=== PATIENT | female | born 1985 | race Caucasian/White ===

== ENCOUNTER 2017-03-11 09:20 | Emergency (ER) | payer MEDICAID, SELFPAY ==
[2017-03-11 09:36] VITALS: BP 133/81; PULSE 100; RESP 18; TEMP 36.2; O2SAT 97
[2017-03-11 09:39] VITALS: PULSE 90; RESP 18; O2SAT 97; BMI 39.5
[2017-03-11 10:10] LABS: UTC Influenza A Antigen Negative (Negative); UTC Influenza B Antigen Negative (Negative)
--- NOTE | 2017-03-11 10:19 | HMH.EDUTC ---
[facility] [place] Impression: Viral upper respiratory illness Disposition: Home, Self-Care Condition on Discharge: Good Instructions: DI for Viral Upper Respiratory Infection -- Adult Additional Instructions: * No sign of bacterial infection. Likely viral. Virus can take 7-14 days to run their course * Monitor Temp. Tylenol every 4 hours as needed no more then 5 times a day or 4000mg in 24 hours and/or ibuprofen every 6 hours as needed no more then 3200mg in 24 hours (as long as your primary care doctor has told you that it is ok to take both) for fever/aches/pain. ER if fever no less than 101 despite tylenol and ibuprofen * Encourage fluids, water, gatorade, powerade, pedialyte if infant/toddler/child * warm salt water gargles * warm fluids * sore throat lozenges * sleep elevated * humidifier/vaporizer * * Your throat swab was sent for culture. Those results are typically sent to your primary care. Be sure to follow up in 2-3 days if no improvement so they can review those results and treat if necessary. If you don't have primary care, I recommend you get one but in the mean time, you will have to return to a walk in clinic. Follow up with your primary care or return to [facility] IMMEDIATELY for new or worsening symptoms OR no noticeable improvement over the next 48-72 hours. 911 for difficulty breathing or swallowing. Time of Disposition: 10:33 Medical Decision Making Vital Signs: 03/11/17 09:36 03/11/17 09:39 Temperature 97.1 F L Temperature Source Temporal Artery Scan Pulse Rate [Left] 100 H 90 Respiratory Rate 18 18 Blood Pressure [Right Arm] 133/81 Blood Pressure Mean [Right Arm] 98 Blood Pressure Source [Right Arm] Automatic Cuff Blood Pressure Position [Right Arm] Sitting 02 Sat by Pulse Oximetry 97 97 Oxygen Delivery Method Room Air - Lab Data Lab Results 03/11/17 10:06: Influenza Type A Ag Negative, Influenza Type B Ag Negative, Strep Scn Rapid [facility] - [place] Inquiry Pt receiving controlled substance: No [facility] [place] General Stated complaint: Flu Like Symptoms Time Seen by Provider: 03/11/17 10:19 Mode of Arrival: Ambulatory Source of Information: Patient Limitations: No Limitations Description of Symptoms (Recalled from Triage Doc. by RN): SORE THROAT, COUGH 2 DAYS HEENT Symptoms (Recalled from RN notes): Yes Resp Symptoms (Recalled from RN notes): No Skin Symptoms (Recalled from RN notes): No MS Symptoms (Recalled from RN notes): No Functional Status (Recalled from RN notes): N - History of Present Illness Provider Complaint: c/o vague symptoms for awhile now . Finally able to narrow it down to at least a few days . Hasn't taken or tried anything. Initially only c/o sore throat but opens up on ROS. No known sick contacts. - Related Data Home Medications Medication Instructions Recorded Confirmed No Known Home Medications [No 03/11/17 03/11/17 Known Home Medications] Allergies Allergy/AdvReac Type Severity Reaction Status Date / Time Penicillins [PENICILLINS] Allergy Intermediate Unverified 02/23/17 14:57 - Worker's Comp Is this a Worker's Comp case?: No [facility] History - *Social History Alcohol Intake: never - Psychiatric History Expresses thoughts of harming self/others: None Suicide Plan Description: No Plan ROS Obtained: Yes Systems reviewed as appropropriate & no additional complaint - Constitutional Reports body ache(s), Reports chills, Reports fatigue, Reports fever(s) (subjective, at times, not consistent, nothing she is taking medication for), Reports headache(s) (mild intermittent), Denies anorexia - Eyes Denies discharge - ENT Reports ear pain (khris, mild, intermittent), Reports nasal congestion, Reports nasal discharge (clear), Reports post nasal drip, Reports sore throat, Denies abnormal hearing, Denies dizziness, Denies difficulty swallowing, Denies ear discharge, Denies sinus pain, Denies sinus pressure, Denies
--- NOTE | 2017-03-11 10:24 | ED_ITS ---
[facility] [place] Clinical Impression: Viral upper respiratory illness Disposition: Home, Self-Care Condition on Discharge: Good Instructions: DI for Viral Upper Respiratory Infection -- Adult Additional Instructions: * No sign of bacterial infection. Likely viral. Virus can take 7-14 days to run their course * Monitor Temp. Tylenol every 4 hours as needed no more then 5 times a day or 4000mg in 24 hours and/or ibuprofen every 6 hours as needed no more then 3200mg in 24 hours (as long as your primary care doctor has told you that it is ok to take both) for fever/aches/pain. ER if fever no less than 101 despite tylenol and ibuprofen * Encourage fluids, water, gatorade, powerade, pedialyte if infant/toddler/ child * warm salt water gargles * warm fluids * sore throat lozenges * sleep elevated * humidifier/vaporizer * * Your throat swab was sent for culture. Those results are typically sent to your primary care. Be sure to follow up in 2-3 days if no improvement so they can review those results and treat if necessary. If you don't have primary care , I recommend you get one but in the mean time, you will have to return to a walk in clinic. Follow up with your primary care or return to [facility] IMMEDIATELY for new or worsening symptoms OR no noticeable improvement over the next 48-72 hours. 911 for difficulty breathing or swallowing. Time of Disposition: 10:33 Medical Decision Making Vital Signs: 03/11/17 09:36 03/11/17 09:39 Temperature 97.1 F L Temperature Source Temporal Artery Scan Pulse Rate [Left] 100 H 90 Respiratory Rate 18 18 Blood Pressure [Right Arm] 133/81 Blood Pressure Mean [Right Arm] 98 Blood Pressure Source [Right Arm] Automatic Cuff Blood Pressure Position [Right Arm] Sitting 02 Sat by Pulse Oximetry 97 97 Oxygen Delivery Method Room Air - Lab Data Lab Results 03/11/17 10:06: Influenza Type A Ag Negative, Influenza Type B Ag Negative, Strep Scn Rapid Clinic [facility] - Drew Inquiry Pt receiving controlled substance: No [facility] [place] HPI - General Stated complaint: Flu Like Symptoms Time Seen by Provider: 03/11/17 10:19 Mode of Arrival: Ambulatory Source of Information: Patient Limitations: No Limitations Description of Symptoms (Recalled from Triage Doc. by RN): SORE THROAT, COUGH 2 DAYS HEENT Symptoms (Recalled from RN notes): Yes Resp Symptoms (Recalled from RN notes): No Skin Symptoms (Recalled from RN notes): No MS Symptoms (Recalled from RN notes): No Functional Status (Recalled from RN notes): N - History of Present Illness Provider Complaint: c/o vague symptoms for awhile now . Finally able to narrow it down to at least a few days . Hasn't taken or tried anything. Initially only c/o sore throat but opens up on ROS. No known sick contacts. - Related Data Home Medications Medication Instructions Recorded Confirmed No Known Home Medications [No 03/11/17 03/11/17 Known Home Medications] Allergies Allergy/AdvReac Type Severity Reaction Status Date / Time Penicillins [PENICILLINS] Allergy Intermediate Unverified 02/23/17 14:57 - Worker's Comp Is this a Worker's Comp case?: No [facility] History - *Social History Alcohol Intake: never - Psychiatric History Expresses thoughts of harming self/others: None Suicide Plan Description: No Plan ROS Obtained: Yes Systems reviewed as appropropr
== END 2017-03-11 11:36 | disposition home or self-care (01) ==
LOC: UTC 11:27
PROVIDERS: Emergency Provider Nurse Practitioner Family; Family Provider Emergency Medicine
DX: J06.9 Acute upper respiratory infection, unspecified (principal); Z88.0 Allergy status to penicillin
CPT/HCPCS: 87276; 87430; 87804; 87880; 99201; 99203

== ENCOUNTER → 2017-12-23 09:46 | Outpatient (CLI) | payer MEDICAID, SELFPAY ==
--- NOTE | 2017-12-23 09:47 | CA_ITS ---
PROCEDURE: 2-D M-mode and color Doppler study INDICATIONS FOR THE TEST: Chest pain COPD Heart Murmur Tobacco SmokingX PalpitationsX Fatigue Syncope EdemaX Hypertension Diabetes Mellitus Rheumatic Fever SOB DOEXObesityXHyperlipidemia Family History HD Additional History BUBBLE STUDY DONE APPEARS NEGATIVE PATIENT INFORMATION HEIGHT: 68 WEIGHT:293 GENDER: Female B/P:146/86 2-D/M-MODE INTERPRETATION: 2-D MEASUREMENTS OBSERVED VALUES IN CMS Right Ventricular Dimension (RVDd) 2.1 Interventricular Septum (Thickness)(IVsd) .9 Left Ventricular Internal Dimensions(LVIDd) 5.4 Left Ventricular Posterior Wall (Thickness)(LVPWd) .9 Aortic Root 3.1 Aortic Cusp Separation 2.3 Left Atrial Dimensions (LAD) 3.0 2D 1. Left atrium is normal size, left ventricle is normal size, there is no concentric left ventricular hypertrophy, visually estimated ejection fraction 55% with no regional wall motion abnormality. 2. The right atrium and right ventricle are normal size and contractility. 3. The aortic, mitral and tricuspid valvular grossly normal. 4. The pulmonic valve is poorly visualized. 5. No significant pericardial effusion noted. DOPPLER INTERROGATION: Doppler interrogation of the aortic, mitral and tricuspid valvular presence of mild mitral and tricuspid regurgitation, tricuspid regurgitation jet velocity is inadequate for calculation of the right ventricular systolic pressure, diastolic parameters are within normal range, agitated saline contrast study fails to identify intracardiac shunt. CONCLUSION: 1. Normal left ventricular size, preserved left ventricular systolic function, visually estimated ejection fraction 55% with no regional wall motion abnormality, diastolic parameters are within normal range. 2. Mild mitral and tricuspid regurgitation of no hemodynamic significance. 3. Agitated saline contrast study fails to identify intracardiac shunt.
--- NOTE | 2017-12-23 09:47 | AS_ITS ---
Renal Arterial Duplex Indications: 405.91 Unspecified renovascular hypertension. IMPRESSIONS 1. The right renal artery appears normal. 2. The left renal artery appears normal. Complete renal arterial duplex. Duplex scan and Doppler flow study including spectral analysis, color and cedillo scale imaging. Height: Height: 172.7cm. Height: 68in. Weight: Weight: 134.7kg. Weight: 296.4lb. Body mass index: BMI: 45.2kg/m^2. Body surface area: BSA: 2.61m^2. Location: Vascular laboratory. Patient status: Outpatient. Tables: Arterial flow: + +-------+--------+ Location V sys V ed + +-------+--------+ Right renal - proximal 183cm/s 63.7cm/s + +-------+--------+ Right renal - mid 215cm/s 62.5cm/s + +-------+--------+ Right renal - distal 136cm/s 35.4cm/s + +-------+--------+ Left renal - proximal 188cm/s 36.6cm/s + +-------+--------+ Left renal - mid 155cm/s 44.8cm/s + +-------+--------+ Left renal - distal 157cm/s 47.2cm/s + +-------+--------+ Right renal - Origin 163cm/s 56cm/s + +-------+--------+ Left renal - Origin 191cm/s 51cm/s + +-------+--------+ Aorta 101cm/s 28cm/s + +-------+--------+ Renal anatomy: + +------+------+ Left Right + +------+------+ Long axis 11.1cm 11.6cm + +------+------+ Short axis 5.3cm 5cm + +------+------+ Velocity ratios: + +-----+ V sys + +-----+ Right renal/aortic 2.1 + +-----+ Left renal/aortic 1.9 + +-----+ (Report amended ) Electronically signed by: Javed Conn [id number]
== END ==
PROVIDERS: PCP Nurse Practitioner Family; Visit Provider Internal Medicine
DX: R06.09 Other forms of dyspnea (principal); R42 Dizziness and giddiness; R00.2 Palpitations; E66.01 Morbid (severe) obesity due to excess calories
CPT/HCPCS: 93306; 93976

== ENCOUNTER → 2018-06-03 09:29 | Outpatient (CLI) | payer MEDICAID, SELFPAY ==
[2018-06-03 11:51] LABS: HCG,Quantitative 124 mIU/mL
== END ==
PROVIDERS: Visit Provider Nurse Practitioner Obstetrics & Gynecology
DX: Z32.00 Encounter for pregnancy test, result unknown (principal)
CPT/HCPCS: 36415; 84702

== ENCOUNTER → 2018-07-04 14:30 | Outpatient (CLI) | payer MEDICAID, SELFPAY ==
[2018-07-04 15:10] LABS: Basophils % 0.4 % (0.1-2.0); Eosinophils # 0.3 K/mm3 (0.0-0.4); Eosinophils % 2.6 % (0.1-12.0); Hematocrit 40.6 % (37.0-47.0); Hemoglobin 13.7 g/dL (12.2-16.2); Lymphocytes # 3.3 K/mm3 (0.7-4.5); Lymphocytes % 27.4 % (10-50); Mean Corpuscular HGB Conc 33.8 g/dL (31.8-35.4); Mean Platelet Volume 7.2 fl (7.4-10.4); Monocytes # 0.4 K/mm3 (0.1-1.0); Neutrophils # 7.9 K/mm3 (1.8-7.8); Neutrophils % 66.6 % (37.0-80.0); Platelet Count 414 K/mm3 (142-424); Red Blood Count 4.72 M/mm3 (4.20-5.40); Red Cell Distribution Width 13.5 % (11.5-17.5); White Blood Count 11.9 K/mm3 (4.8-10.8)
[2018-07-06 08:32] LABS: Hepatitis B Surface Antigen Negative (Negative); Hepatitis C Antibody <0.1 s/co ratio (0.0-0.9); Rubella Antibodies, IgG 1.02 index (Immune >0.99)
[2018-07-06 12:42] LABS: HIV Screen 4th Generation wRfx Non Reactive (Non Reactive); Rapid Plasma Reagin Ab Titer Non Reactive (NonRea<1:1)
[2018-07-07 07:23] LABS: Buprenorphine, Urine Negative ng/mL (Cutoff=10)
== END ==
PROVIDERS: Visit Provider Nurse Practitioner Obstetrics & Gynecology
DX: Z34.90 Encounter for supervision of normal pregnancy, unspecified, unspecified trimester (principal)
CPT/HCPCS: 36415; 80307; 85025; 86592; 86703; 86762; 86850; 87340; 87380; G0432

== ENCOUNTER → 2018-07-11 11:39 | Outpatient (CLI) | payer MEDICAID, SELFPAY ==
--- NOTE | 2018-07-11 11:44 | US_ITS ---
US OB transvaginal HISTORY: Elevated OB ultrasound ITS.REASON: check for dates ORDERING PHYSICIAN: Jason Smith MD PATIENT AGE: 33 years COMPARISON: None FINDINGS: An intrauterine gestational sac is present with a pole with a crown-rump length of 2.77cm correlating to gestational age of 9w5d. heart tones are present with an FHR of 144 bpm's. Yolk sac is noted. The amnion and chorion have not yet fused. Adnexa: 2 cm left corpus luteum cyst. IMPRESSION: Live intrauterine gestation at 9 weeks 5 days as described above. Estimated due date by Ultrasound is 02/08/2019
== END ==
PROVIDERS: PCP Emergency Medicine; Visit Provider Nurse Practitioner Obstetrics & Gynecology
DX: O26.841 Uterine size-date discrepancy, first trimester (principal)
CPT/HCPCS: 76817

== ENCOUNTER → 2018-09-19 09:12 | Outpatient (CLI) | payer MEDICAID, SELFPAY ==
--- NOTE | 2018-09-19 09:14 | US_ITS ---
US OB /maternal detail: INDICATION: ITS.REASON: US OB Complete ORDERING PHYSICIAN: Jason Smith MD PATIENT AGE: 33 years TECHNIQUE: ultrasound transabdominal scanning. COMPARISON: No previous relevant studies. FINDINGS: Single viable intrauterine gestation. Cephalic position. Placenta: Lateral placenta grade 1. There is average amount fluid. The cervix appears satisfactory. Closed and measuring 3 cm in length. Complete survey performed and was unremarkable on the submitted images as in PACS. No discrete anomalies identified on survey imaging by technologist. Active fetus. Three-vessel cord with satisfactory umbilical cord insertion. 4- chamber heart noted. Survey of brain & ventricles unremarkable. Face and neck survey unremarkable. Diaphragm and chest views unremarkable. Abdomen: Both kidneys noted and unremarkable. Stomach noted and satisfactory. Spine: Survey of the spine satisfactory with no anomalies identified nor imaged. Both arms and legs noted. Amniotic Fluid: Adequate. Maternal adnexa: No significant findings. Measurements: Average ultrasound age 19w6d. Gestational Age 19w5d. Estimated due date by ultrasound age 1202/07/2019. Estimated weight 328 grams. BPD = 19w5d OFD = 19w5d HC = 19w0d AC = 20w5d FL = 19w5d Growth Percentile= 64% Heart Rate = 152 Cerebellum = 19w0d Humerus = 19w6d HC/AC is 1.04 (1.09-1.26). CI is 80% (70-86%). FL/BPD is 69%. FL/AC is 20%. IMPRESSION: There is a single live fetus present in cephalic presentation with an average ultrasound age of 19 weeks and 6 days. All parameters correlate with no obvious anomalies. Please see above for details
== END ==
PROVIDERS: PCP Emergency Medicine; Visit Provider Nurse Practitioner Obstetrics & Gynecology
DX: Z36.0 Encounter for antenatal screening for chromosomal anomalies (principal)
CPT/HCPCS: 76811

== ENCOUNTER → 2018-10-26 17:31 | Outpatient (CLI) | payer MEDICAID, SELFPAY | PROVIDERS: Visit Provider Nurse Practitioner Obstetrics & Gynecology | DX: O23.40 Unspecified infection of urinary tract in pregnancy, unspecified trimester (principal); Z3A.25 25 weeks gestation of pregnancy | CPT/HCPCS: 87086; 87088; 87186 ==

== ENCOUNTER → 2018-10-31 09:54 | Outpatient (CLI) | payer MEDICAID, SELFPAY ==
[2018-10-31 10:26] LABS: Glucose,Fasting 81 mg/dL (60-105)
[2018-10-31 11:48] LABS: Glucose 1 Hour 105 mg/dL (74-106)
== END ==
PROVIDERS: Visit Provider Nurse Practitioner Obstetrics & Gynecology
DX: Z34.90 Encounter for supervision of normal pregnancy, unspecified, unspecified trimester (principal)
CPT/HCPCS: 36415; 82951

== ENCOUNTER 2018-11-17 11:22 | Outpatient (CLI) | payer MEDICAID, SELFPAY ==
[2018-11-17 12:40] VITALS: BP 126/71; PULSE 82; RESP 20; TEMP 36.8; O2SAT 97
== END 2018-11-17 13:00 | disposition home or self-care (01) ==
LOC: LAB 11:23
PROVIDERS: Visit Provider Nurse Practitioner Obstetrics & Gynecology
DX: Z34.90 Encounter for supervision of normal pregnancy, unspecified, unspecified trimester (principal)
CPT/HCPCS: 36415; 96372; J2790

== ENCOUNTER → 2019-01-02 17:26 | Outpatient (CLI) | payer OTHER, SELFPAY | PROVIDERS: Visit Provider Nurse Practitioner Obstetrics & Gynecology | DX: Z34.90 Encounter for supervision of normal pregnancy, unspecified, unspecified trimester (principal); Z3A.35 35 weeks gestation of pregnancy | CPT/HCPCS: 86403 ==

== ENCOUNTER 2019-01-30 05:08 | Inpatient (IN) ==
[2019-01-30 05:53] LABS: Basophils % 0.4 % (0.1-2.0); Eosinophils # 0.3 K/mm3 (0.0-0.4); Eosinophils % 2.6 % (0.1-12.0); Hematocrit 36.5 % (37.0-47.0); Hemoglobin 11.9 g/dL (12.2-16.2); Lymphocytes # 3.3 K/mm3 (0.7-4.5); Lymphocytes % 26.9 % (10-50); Mean Corpuscular HGB Conc 32.7 g/dL (31.8-35.4); Mean Corpuscular Volume 92.7 fl (81-99); Mean Platelet Volume 8.5 fl (7.4-10.4); Monocytes # 0.4 K/mm3 (0.1-1.0); Monocytes % 3.2 % (1.7-9.3); Neutrophils # 8.1 K/mm3 (1.8-7.8); Platelet Count 384 K/mm3 (142-424); Red Blood Count 3.94 M/mm3 (4.20-5.40); Red Cell Distribution Width 13.6 % (11.5-17.5); White Blood Count 12.1 K/mm3 (4.8-10.8)
[2019-01-30 06:03] LABS: Anion Gap 15.6 mEq/L (5-15); Calcium 8.6 mg/dL (8.5-10.1)
--- NOTE | 2019-01-30 07:14 | Progress Note ---
[facility] Anesthesia Checklist - Structural Data Admitted From: Inpatient Planned Operative Procedure/s: c/section Consent for Planned Operative Procedure(s) Verified: Yes - Airway Assessment C-Spine Mobility Assessed: Yes TMJ Mobility Assessed: Yes Dentition: Poor Dentition - Neurological Assessment Level of Consciousness: Awake, Alert, Appropriate - Anesthesia Plan Anesthesia Risk discussed: Yes Anesthesia Plan: Verified ASA Class: III Anesthesia Type: Spinal [facility] History I have reviewed the patient's past medical history: Yes Medical History: Reports:: Anxiety, Depression, Hyperlipidemia, Hypertension Denies:: Diabetes Mellitus Type 1, Diabetes Mellitus Type 2 *Have you ever received a pneumonia vaccine?: No *Have you received a flu vaccine this season?: Yes Anesthesia experience/problems:: none Other Surgeries: Yes: , Dilation and Curettage, Other Amputation: No Fractures: No - *Social History Smoking Status: Current every day smoker Tobacco Type: cigarettes # Packs/Day (cigarettes): 1 Alcohol Intake: never Substance Use Type: denies use *Occupational Status:: unemployed Housing: house Household Members: family, children *Travel in the last 8 weeks: None - Psychiatric History Pschychiatric History:: Reports:: Anxiety, Depression Family Hx:: Cancer ADOBE BLOCK MAKER history: Spontaneous , Additional [employer]OBE BLOCK [employer] History
[2019-01-30 07:43] LABS: Microscopic, Urine URINE MICROSCOPIC (MICROSCOPIC)
[2019-01-30 07:56] LABS: Amphetamine/Metha Screen,Urine Negative ng/mL (<1000); Barbiturates Screen,Urine Negative ng/mL (<200); Benzodiazepines Screen,Urine Negative ng/mL (<200); Cannabinoid Screen,Urine Negative ng/mL (<50); Cocaine Screen,Urine Negative ng/mL (<300); Methadone Screen,Urine Negative ng/mL (<300); Opiate Screen,Urine Negative ng/mL (<300); Phencyclidine Screen,Urine Negative ng/mL (<25)
[2019-01-30 08:39] LABS: Bacteria,Urine Trace /lpf
--- NOTE | 2019-01-30 08:42 | Operative Note ---
Date of procedure: 01/30/19 Pre-op Diagnosis:: Term , previous section, desire for sterilization Post-op Diagnosis:: Term , previous section, desire for sterilization Procedure performed:: Repeat lower segment transverse section and bilateral tubal ligation Surgeon:: Jason Smith MD Compress Trucker(s):: Hetal Dent COMEDIAN:: Maksim Flor Anesthesia: spinal Estimated blood loss (mL): 600 Clinical Note:: She is a 33-year-old 4 para 1 aborta 2 who was 39 weeks gestational age. She had a previous section and as a result of that was offered repeat lower segment transverse section at term. Operative findings:: She delivered a liveborn female child at 7:55 AM on the morning of January 30, 2019. The baby was a liveborn female child weighing 5 pounds 15 ounces. She had Apgars of 9 at 1 minute and 9 at 5 minutes. There was a loose nuchal cord. She was 18 inches long. pH was 7.40. Ovaries and tubes appeared normal. Operative note:: She was taken to the operating room where spinal anesthesia was found be adequate. She was prepped and draped in normal sterile fashion in the supine position with a leftward tilt. A Jones catheter was in the bladder. A Pfannenstiel skin incision was made with knife then carried through to the underlying layer of fascia with cautery. The fascia was opened in the midline with cautery and extended laterally using Purcell scissors. Ramin clamps were applied to the superior aspect of the fascial incision which was tented up and the underlying rectus muscles dissected off using cautery. The Hatch clamps were then applied to the inferior aspect of the fascial incision which in a similar fashion was tented up and the underlying rectus muscles dissected off using cautery. The rectus muscles were then in the midline, the peritoneum identified, and entered sharply with Metzenbaum scissors. This incision was then extended superiorly and inferiorly with cautery. We had good visualization of the bladder inferiorly. The Mobius retractor was then inserted into the abdominal cavity. The bladder peritoneum was then opened in the midline and extended laterally using Metzenbaum scissors. A bladder flap was created digitally. Transverse incision was made through the uterine muscle to the amnion. This incision was then extended superiorly and inferiorly using fingers as traction. The amnion was entered sharply with knife. There was clear amniotic fluid. The infant's head was then delivered atraumatically. A loose nuchal cord was then reduced. This was followed by the anterior shoulder and the rest of the infant's body atraumatically. The oropharynx and nasopharynx were bulb suctioned. The baby was vigorous so we allowed the cord to continue to pulsate for approximately 1 minute. The was then handed off to the nurses who assigned Apgars of 9 at 1 minute and 9 at 5 minutes. We then obtained cord blood as well as cord pH. The pH was 7.40. Using gentle traction on the cord and countertraction on the fundus I was able to easily deliver the placenta intact. It had a normal three-vessel cord. The uterus was then cleared of clots and debris . The uterus was then exteriorized from the abdominal cavity. The uterine incision was then closed using running 0 Vicryl suture in a locked fashion. A second layer of the same suture was used to imbricate the first layer. The bladder peritoneum was then closed using running 2-0 Vicryl suture in a locked fashion. The gutters and cul-de-sac were then cleared of clots and debris . Once again hemostasis was assured. We then performed a bilateral tubal ligation. The right tube was grasped with a [place] and a knuckle of tissue was made. This was clamped across with Gabriela clamp. I then doubly suture-ligated the base of the knuckle of tube in the intervening section of tube was removed. The distal ends were then cauterized. This was similar performed on the opposite side. Once again we assured hemostasis. The peritoneum was grasped with Gabriela clamps and closed using running 2-0 Vicryl suture. The rectus muscles were then reapproximated using running 0 Vicryl suture. The fascia was closed using running #1 Vicryl suture. The subcutaneous tissues were then irrigated with warm water followed by closure Serge's fascia using running 2-0 Monocryl suture. The skin was closed with running 2-0 Monocryl suture. I then cleaned the skin with Hibiclens. Steri-Strips and Mastisol were then applied. Sterile dressings were applied. She tolerated the procedure well and was taken to the recovery room in excellent condition. All sponges, instrument and needle counts were correct. Estimated blood loss was approximately 600 mL. Condition: stable Disposition: PACU Specimens:: Bilateral fallopian tubes Complications:: None
[2019-01-30 08:46] LABS: Appearance,Urine CLEAR (Clear); Bilirubin,Urine Negative (Negative); Blood, Urine 1+ (Negative); Color,Urine YELLOW (Yellow); Glucose,Urine (UA) Negative (Negative); Ketones,Urine Negative (Negative); Leukocyte Esterase,Urine TRACE (Negative); PH,Urine 6.5 (5.0-8.5); Protein,Urine 1+ (Negative); Specific Gravity, Urine >= 1.030 (1.005-1.030); Urobilinogen,Urine 0.2 EU/dl (0.2)
--- NOTE | 2019-01-30 08:47 | Progress Note ---
[facility] Anesthesia Record Part I Intake, IV Amount: 1,800 Estimated blood loss (mL): 600 Urine output (mL): 200 Blood Pressure: 155/81 SaO2: 98 Pulse Rate: 63 Respiratory Rate: 12 Temperature: 98.3 F Patient is:: Awake, Stable Stable to PACU at:: 08:40
--- NOTE | 2019-01-30 08:47 | Progress Note ---
[facility] Anesthesia Record Part II Discharge Time: 09:10 Destination: Obstetric PACU nurse assessment reviewed?: Yes Patient Condition:: Good Anesthesia Complications:: None Swallowing reflex intact?: Yes Cyanosis?: No
--- NOTE | 2019-01-30 11:30 | Pharmacy Consult Notes ---
[facility] Pharmacy VTE Monitoring - Patient Demographics Admission date: 01/30/19 Report Date: 01/30/19 Time: 11:29 Allergies/Adverse Reactions: Patient Allergies Penicillins [PENICILLINS] Allergy (Intermediate, Verified 01/24/19 15:44) Height: 1.7 m Weight: 132.903 kg - VTE Risk Labs: VTE Related Lab Results Hgb 11.9 g/dL (12.2-16.2) L 01/30/19 05:45 Hct 36.5 % (37.0-47.0) L 01/30/19 05:45 Plt Count 384 K/mm3 (142-424) 01/30/19 05:45 BUN 7 mg/dL (7-18) 01/30/19 05:45 Creatinine 0.61 mg/dL (0.55-1.02) 01/30/19 05:45 Estimated Creat Clear 126 mL/min (50-200) 01/30/19 05:45 - Prophylaxis VTE Prophylaxis Ordered?: Yes Types of VTE Prophylaxis: IPCS Thigh High Location of Applied Device: Bilateral Lower Extremeties - VTE Diagnosis Confirmed Treatment or plan recommended: Continue Current Treatment
[2019-01-31 06:27] LABS: Hematocrit 31.2 % (37.0-47.0); Hemoglobin 9.9 g/dL (12.2-16.2)
--- NOTE | 2019-01-31 14:26 | Progress Note ---
Internal Medicine - PN: Subj *Date: 01/31/19 *Time: 14:24 Interval history: She continues to do well. She is eating and drinking and ambulating. She is breast-feeding. Her lochia is normal. Her pain is well controlled Exam Vital signs and Labs for Last 24 Hours: Temp Pulse Resp BP Pulse Ox 98.1 F 88 20 132/72 98 01/31/19 12:00 01/31/19 12:00 01/31/19 12:00 01/31/19 12:00 01/31/19 08:20 Laboratory Results - last 24 hr 01/31/19 06:05: Hgb 9.9 L, Hct 31.2 L 01/31/19 06:05: Blood Type O Negative, Antibody Screen Negative, Screen Negative, Baby's Rh Status Positive I & O for Last 24 hours: Intake & Output 01/29/19 01/30/19 01/31/19 02/01/19 11:59 11:59 11:59 11:59 Intake Total 1850 / 1850 Output Total 50 / 50 600 / 600 Balance 1800 / 1800 -600 / -600 Weight 293 lb - Constitutional no acute distress Assessment and Plan (1) delivery delivered Current visit: Yes Status: Acute Category: Medical Code(s): O82 - Encounter for delivery without indication (2) Previous section Problem details: failure to progress Current visit: No Status: Chronic Category: Surgical Code(s): Z98.891 - History of uterine scar from previous surgery (3) Sterilization Current visit: Yes Status: Acute Category: Medical Code(s): Z30.2 - Encou nter for sterilization - Assessment and plan all Dx Assessment and Plan for all problems:: She is doing well. We will plan to send her home in 48 hours
--- OUTSIDE RECORDS SUMMARY | 2019-01-31 15:27 | External Medical Summary | Continuity of Care Document ---
:1985 Author Organization [facility] Address [address] [facility] [address] [place] [address] Phone Care Team Providers Name Role Phone Luis Attending Provider Debra Primary Care Provider Debra Attending Provider Dwight Attending Provider Scot Blanco Primary Care Provider Allergies, Adverse Reactions, Alerts Allergen Type Severity Reaction Last Verified Status Updated Penicillins Allergy Moderate Yes Active Medications Medication Status Dose Units Route Sig Qty Days Start Date End Ins tructions Date Famotidine Active 20 MG Oral Daily January 30, 2019 6:11am Vit Active 1 TAB Oral Daily January No.126/Iron/ 2018 Folic 6:11am Labetalol Active 200 MG Oral Twice a November day 2018 6:16pm Problems Active Problems Medical Problem Onset Date Status Encounter for Routine Gynecological Acti ve Examination delivery delivered Active Herpes labialis Active Sterilization Active Ureteric colic Active Otitis media Active Active Obesity complicating Active Splenic calcification Active Previous section Active Viral upper respiratory illness Active Chronic hypertension during Active Procedures Procedure Date Performed Status Group B Streptococcus Screen January 02, 2019 completed (SOCO) Relevant Diagnostic Tests and/or Laboratory Data Laboratory Results Test Date/Time Result Interpretation Reference Result Perfo rming Range Comment Site Urine Color November Dark Yellow 2018 3:55pm Urine Color Kailyn Yellow 2018 4:00pm Urine Color October Yellow 2018 4:37pm Urine Color October Yellow 2018 3:50pm Urine Color November Dark Yellow 2018 4:38pm Urine Color November Nohemy 2018 3:26pm Urine Color November Nohemy 2018 3:50pm Urine Kailyn Clear Appearance 2018 3:55pm Urine Kailyn Clear Appearance 2018 4:00pm Urine October Clear Appearance 2018 4:37pm Urine October Clear Appearance 2018 3:50pm Urine November Clear Appearance 2018 4:38pm Urine November Clear Appearance 2018 3:26pm Urine November Clear Appearance 2018 3:50pm Urine Glucose Kailyn Negative (UA) 2018 3:55pm Urine Glucose Kailyn Negative (UA) 2018 4:00pm Urine Glucose October Negative (UA) 2018 4:37pm Urine Glucose October Negative (UA) 2018 3:50pm Urine Glucose November Negative (UA) 2018 4:38pm Urine Glucose January Negative (UA) 2018 3:26pm Urine Glucose November Negative (UA) 2018 3:50pm Urine Kailyn moderate Bilirubin 2018 3:55pm Urine Kailyn small Bilirubin 2018 4:00pm Urine October small Bilirubin 2018 4:37pm Urine October small Bilirubin 2018 3:50pm Urine November moderate Bilirubin 2018 4:38pm Urine November negative Bilirubin 2018 3:26pm Urine November negative Bilirubin 2018 3:50pm Urine Ketones Kailyn Trace 5 mg/dL 2018 3:55pm Urine Ketones Kailyn Trace 5 mg/dL 2018 4:00pm Urine Ketones October Negative mg/dL 2018 4:37pm Urine Ketones October Negative mg/dL 2018 3:50pm Urine Ketones November Small 15 mg/dL 2018 4:38pm Urine Ketones November Negative mg/dL 2018 3:26pm Urine Ketones November Negative mg/dL 2018 3:50pm Urine Protein November 100++ 2018 3:55pm Urine Specific Kailyn 1.025 Sherman 2018 4:00pm Urine Protein December 30+ 2018 4:37pm Urine Protein December 100++ 2018 3:50pm Urine Protein January 100++ 2018 4:38pm Urine Specific January 1.015 Sherman 2018 3:26pm Urine Protein January 100++ 2018 3:50pm Urine pH November 6.0 2018 3:55pm Urine Blood November nonhemolyzed 2018 trace 4:00pm Urine pH December 7.0 2018 4:37pm Urine pH December 6.5 2018 3:50pm Urine pH January 6.0 2018 4:38pm Urine Blood January nonhemolyzed 2018 trace 3:26pm Urine pH January 7.0 2018 3:50pm Urine Blood November nonhemolyzed 2018 trace 3:55pm Urine pH November 6.0 2018 4:00pm Urine Blood December nonhemolyzed 2018 trace 4:37pm Urine Blood December nonhemolyzed 2018 trace 3:50pm Urine Blood January nonhemolyzed 2018 trace 4:38pm Urine pH January 7.0 2018 3:26pm Urine Blood January nonhemolyzed 2018 trace 3:50pm Urine Specific November 1.030 Sherman 2018 3:55pm Urine Protein November 100++ 2018 4:00pm Urine Specific December 1.015 Sherman 2018 4:37pm Urine Specific October 1.030 Sherman 2018 3:50pm Urine Specific January 1.030 Sherman 2018 4:38pm Urine Protein January 30+ 2018 3:26pm Urine Specific January 1.015 Sherman 2018 3:50pm Urine November 1 Urobilinogen 2018 Dipstick 3:55pm Urine Kailyn 0.2 Urobilinogen 2018 Dipstick 4:00pm Urine October 0.2 Urobilinogen 2018 Dipstick 4:37pm Urine October 1 Urobilinogen 2018 Dipstick 3:50pm Urine November 1 Urobilinogen 2018 Dipstick 4:38pm Urine November 0.2 Urobilinogen 2018 Dipstick 3:26pm Urine November 0.2 Urobilinogen 2018 Dipstick 3:50pm Urine Nitrate Kailyn Negative 2018 3:55pm Urine Nitrate Kailyn Positive 2018 4:00pm Urine Nitrate December Negative 2018 4:37pm Urine Nitrate December Negative 2018 3:50pm Urine Nitrate January Negative 2018 4:38pm Urine Nitrate January Negative 2018 3:26pm Urine Nitrate January Negative 2018 3:50pm Urine Kailyn Negative Leukocyte 2018 Esterase 3:55pm Urine November Negative Leukocyte 2018 Esterase 4:00pm Urine December Negative Leukocyte 2018 Esterase 4:37pm Urine October Negative Leukocyte 2018 Esterase 3:50pm Urine November Negative Leukocyte 2018 Esterase 4:38pm Urine November Negative Leukocyte 2018 Esterase 3:26pm Urine November Trace Leukocyte 2018 Esterase 3:50pm Microbiology Results Procedure Source Result Collection Result Result Performin g Date/Time Date/Time Comment Site Group B Vaginal Negative January 02January Zhang on [facility], [address] Streptococcus for Group B 2018 3:47pm 2018 [place] [address] Screen (SOCO) Streptococc 10:35am us. Advance Directives Advance Directive Response Recorded Date/Time Does the patient have an No January 02 019 4:16pm advanced directive on file? Living Will No January 02, 2019 4 :16pm Does the patient have an No November 18, 2018 8:45am advanced directive on file? Living Will No November 18, 2018 8:45am Does the patient have an No January 24, 2019 4:09pm advanced directive on file? Living Will No January 24, 2019 4:09pm Does the patient have an No January 11 4:27pm advanced directive on file? Living Will No January 11, 2019 4 :27pm Chief Complaint and Reason for Visit Chief Complaint LAB WORK Sick visit (adolescent/adult ) OFFICE DROP OFF OR Reason for Visit delivery delivered Sterilization Encounters Encounter Location(s) Arrival/Admit Date Discharge/Depart Date Provider(s) Departed [facility] Physician November 16November 16, 2018 Lucrecia kiley Smith Physician/[facility] 2018 3:41pm 4:18pm lucrecia [facility] Luis Visit Departed [facility] Physician November 17November 17, 2018 Lucrecia kiley Smith Clinical Group-Laboratory 2018 11:22am 1:00pm Departed [facility] Physician November 17November 17, 2018 Joaquin Richardson , Physician/[facility]Primary 2018 3:03pm 4:25pm DISPATCH LEAD lucrecia Office [facility] Visit Departed [facility] Physician November 30, November 30, 2018 Gallagher , Physician/[facility] 2018 3:52pm 4:07pm lucrecia [facility] Luis Visit Departed [facility] Physician December 14, 2018 December 14, 2018 Chela Smith Physician/[facility] 3:42pm 4:39pm [facility] Luis Visit Departed [facility] Physician January 02, 2019 January 02, 2019 Palumbo , Physician/[facility] 3:34pm 4:10pm lu[facility]cia [facility] Luis Visit Registered [facility] Physician January 02, 2019 Jason suarez , Clinical Group-Lab Drop 5:26pm MD Off to [facility] Departed [facility] Physician January 11, 2019 January 11, 2019 Catina Quintanilla , Physician/[facility] 3:44pm 4:23pm [facility] Luis Visit Departed [facility] Physician January 18, January 18, 2019 Jason Smith Physician[facility] 2018 3:20pm 3:55pm lucrecia [facility] Luis Visit Departed [facility] Physician January 24, January 24, 2019 Jason Smith Physician[facility] 2018 3:17pm 4:09pm lucrecia Office [facility] Luis Visit Registered [facility] Physician January 30, Jason Smith Inpatient Group[facility]Women[facility] 2018 5:08am MD Sabrina Smith Registered [facility] Physician January 31, Jason Smith Inpatient Group- 2019 3:20pm Recent Diagnosis Onset Date delivery delivered Sterilization Assessments Diagnosis Onset Date Resolution Status delivery acute delivered Sterilization acute Functional Status Observation Response Date Recorded Ambulation Ability Independent November 17, 2018 12:55pm Functional status ambulatory January 02, 2019 4 :16pm Functional status ambulatory November 18, 2018 8:45am Functional status ambulatory December 02, 2018 12:12pm Functional status ambulatory November 16, 2018 4:21pm Functional status ambulatory January 24, 2019 4:09pm Oral Care Ability Independent January 24, 2019 4:09pm Bathing Ability Independent January 24, 2019 4:09pm Eating (Feeding) Ability Independent January 24, 2019 4:09pm Functional status ambulatory January 18, 2019 3:55pm Functional status ambulatory January 11, 2019 4 :27pm Functional status ambulatory December 14, 2018 4: 47pm Goals Acute Goals Nursing Diagnosis: Knowledge Deficit D isease/Condition Goal(s): Education of di sease process Instruction(s): Follow provider p evelina/instructions (See attached discharge education) Follow/up with primary care provider as instructed in discharge packet Ambulatory Goals Education of disease process/health beha viors. Barriers: Knowledge deficit/disease proc ess/health behaviors Immunizations Immunization Event Date Not Given Dose Artificial Limb Fitter Lot Vac cine Reason Number Number Informatio n Statement (VIS) Deta il Fluvirin January 16, 2008 Fluvirin May 11, 2017 Fluzone Quad November [id number] 2017 Fluzone Quad November 6-35 Months 2017 Quadrivalent May 11, [id number] Influenza 2017 Quadrivalent January 09 Influenza 2018 Tetanus, September 13, Diphtheria, 2012 Pertussis (Tdap) Tetanus, August 18, Diphtheria, 2015 Pertussis (Tdap) Tetanus, January 09, Diphtheria, 2018 Pertussis (Tdap) Mental Status No Mental Status Information Available Medical Equipment No Medical Equipment Information available Insurance Providers Guarantor Carolina Galvez Address [address] [place] [address] [place] [address] Contact Info. Home Phone: Payer Policy Id Coverage Id Subscriber's Subscriber Effective Expi ration Name Id Date Date [employer] [id number] [place] [id number] [facility] Passport [id number] [place] [id number] Health Plan Formerly [facility] Self Pay Self N/A Plan of Treatment She continues to do very well. We will see her back again in a week. We did group B strep today. sudafed We will see her back in 2 weeks time. She will get a RhoGam shot tomorrow. Her sugar test was fine. We will see her back again in 2 weeks time. She continues to do well. We will see her back again in 1 week for her . We will go ahead with a repeat section and bilateral tubal ligation. Today we discussed the risks of surgery that includes bleeding, infection, injuries to the bowel and bladder. We discussed the rare risk of DVT. We discussed the need for DVT prophylaxis. All questions were answered and consents were signed. Labor precautions, kick counts Continue labetalol 200 BID Tobacco cessation discussed RTO 1 wk She continues to do well. We will see her back again in 2 weeks time. Future Tests Future scheduled test information is unavailable Pending Tests Pending diagnostic test information is unavailable Future Visits Future appointment information is unavailable Referrals to Other Providers Reason for Referral Start Provider Provider Contact Provider Address Referral Date Information Admission to [facility] January [address] Future Procedures Future procedure information is unavailable Future Medications Future medication information is unavailable Patient Instructions Sinusitis Balanced Diet Diet Diet Diet Essential Hypertension Balanced Diet Diet How to Quit Tobacco Products Diet Diet How to Care for a Surgical Wound Depression Hemorrhage [facility] Post Discharge Instructions Social History Assigned Sex Female Vital Signs Vital Reading Result Reference Range Collection Date/ Time Height 170.18 cm November 16, 2018 4:06pm Weight 135.62 kg November 16, 2018 4:06pm BP Systolic 132 mm[Hg] 110-140 November 16, 2018 4:06pm BP Diastolic 60 mm[Hg] 60-90 November 16, 2018 4:06pm BMI (Body Mass Index) 46.8 kg/m2 November 16, 2018 4:06pm Body Temperature 98.2 [degF] 97.6-99.6 November 17, 2018 12:40pm Heart Rate 82 /min 60-90 November 17, 2018 12:40pm Respiratory rate 20 /min -November 17, 2018 12:40pm Oxygen saturation by 97 % 95-100 November 062018 Pulse oximetry 12:40pm BP Systolic 126 mm[Hg] 110-140 November 17, 2018 12:40pm BP Diastolic 71 mm[Hg] 60-90 November 17, 2018 12:40pm Height 170.18 cm November 17, 2018 3:26pm Weight 135.62 kg November 17, 2018 3:26pm Body Temperature 97.8 [degF] 97.6-99.6 November 17, 2018 3:26pm Heart Rate 72 /min 60-90 November 17, 2018 3:26pm Respiratory rate 18 /min -November 17, 2018 3:26pm Oxygen saturation by 98 % 95-100 November 062018 Pulse oximetry 3:26pm BP Systolic 124 mm[Hg] 110-140 November 17, 2018 3:26pm BP Diastolic 70 mm[Hg] 60-90 November 17, 2018 3:26pm BMI (Body Mass Index) 46.8 kg/m2 November 17, 2018 3:26pm Height 170.18 cm November 30, 2018 3:59pm Weight 135.17 kg November 30, 2018 3:59pm Heart Rate 88 /min 60-90 November 30, 2018 3:59pm BP Systolic 152 mm[Hg] 110-140 November 30, 2018 3:59pm BP Diastolic 80 mm[Hg] 60-90 November 30, 2018 3:59pm BMI (Body Mass Index) 46.6 kg/m2 November 30, 2018 3:59pm Height 170.18 cm December 14 9 4:18pm Weight 138.00 kg December 14 9 4:18pm BP Systolic 138 mm[Hg] 110-140 December 14 201 9 4:18pm BP Diastolic 76 mm[Hg] 60-90 December 14 9 4:18pm BMI (Body Mass Index) 47.6 kg/m2 December 4:18pm Height 170.18 cm January 02 3:45pm Weight 133.80 kg January 02 3:45pm BP Systolic 130 mm[Hg] 110-140 January 02 3:45pm BP Diastolic 80 mm[Hg] 60-90 January 02 3:45pm BMI (Body Mass Index) 46.2 kg/m2 January 022018 3:45pm Height 170.18 cm January 11 4:07pm Weight 135.62 kg January 11 4:07pm BP Systolic 130 mm[Hg] 110-140 January 11 4:07pm BP Diastolic 78 mm[Hg] 60-90 January 11 4:07pm BMI (Body Mass Index) 46.8 kg/m2 January 112018 4:07pm Height 170.18 cm January 18, 2 019 3:35pm Weight 134.26 kg January 18, 2 019 3:35pm Heart Rate 88 /min 60-90 January 18, 2 019 3:35pm BP Systolic 138 mm[Hg] 110-140 January 18, 2 019 3:35pm BP Diastolic 88 mm[Hg] 60-90 January 18, 2 019 3:35pm BMI (Body Mass Index) 46.3 kg/m2 January 062018 3:35pm Height 170.18 cm January 24, 2 019 3:40pm Weight 132.90 kg January 24, 2 019 3:40pm BP Systolic 140 mm[Hg] 110-140 January 24, 2 019 3:40pm BP Diastolic 80 mm[Hg] 60-90 January 24, 2 019 3:40pm BMI (Body Mass Index) 45.8 kg/m2 January 062018 3:40pm Height 170.18 cm January 30, 2 019 6:13am Weight 132.90 kg January 30, 2 019 6:13am Body Temperature 98.1 [degF] 97.6-99.6 January 31, 2019 12:00pm Heart Rate 88 /min 60-90 January 31, 2 019 12:00pm Respiratory rate 20 /min -January 31, 2019 12:00pm Oxygen saturation by 98 % 95-100 January 312018 Pulse oximetry 8:20am BP Systolic 132 mm[Hg] 110-140 January 31, 2 019 12:00pm BP Diastolic 72 mm[Hg] 60-90 January 31, 2 019 12:00pm BMI (Body Mass Index) 45.8 kg/m2 January 072018 6:13am
[2019-02-01 12:30] VITALS: BP 140/72
--- NOTE | 2019-02-01 13:44 | Discharge Summary ---
General - General Admission date:: 01/30/19 Discharge date: 02/01/19 HPI HPI: She is a 33-year-old 4 para 2 aborta 2 who was 39 weeks gestational age. She has had a previous section and as result of that was offered repeat lower segment transverse section at term. She also expressed desire for sterilization and she underwent a bilateral tubal ligation. Hospital Course Hospital Course: On January 30, 2019 she underwent a repeat lower segment transverse section and bilateral tubal ligation. She delivered a liveborn female child that weighed 5 pounds ounces and was 18 inches long. The baby had Apgars of 9 at 1 minute and 9 at 5 minutes. She has done well post operatively and has remained afebrile throughout her hospitalization. She is eating and drinking and ambulating. She is breast- feeding. Her lochia is normal. She has O Rh- blood and she has received RhoGam. She is rubella immune and was group B stopcock is negative. Her appraisal manager is Dr. Curry. She is discharged home to follow-up with me in approximately 2 weeks time. She will continue with her vitamins and iron. She was given the usual instructions with respect to limiting her activity, driving and sexual activity. She was given a prescription for Percocet 5/325 number 30 tablets as well as Motrin 400 mg number 40 tablets. Her condition on discharge is stable and improved. Rhogam Administration: Given Objective Vital signs: Temp Pulse Resp BP Pulse Ox 98.4 F 93 H 18 140/72 98 02/01/19 12:29 02/01/19 12:29 02/01/19 12:29 02/01/19 12:29 02/01/19 12:29 no acute distress Results Labs on day of discharge: Labs from last 24 hours 01/31/19 14:44 Rhogam Infusion DS: Diagnosis - Discharge Diagnosis (1) delivery delivered Status: Acute (2) Previous section Status: Chronic Problem details: failure to progress (3) Sterilization Status: Acute Discharge Plan - Patient Discharge Instructions ACTIVITY: Ambulate as tolerated, No heavy lifting DIET: continue same diet, low fat, low cholesterol Additional Instructions: NO HEAVY LIFTING OR STRENUOUS ACTIVITY NOTHING IN VAGINA FOR 6 WEEKS NO DRIVING IF TAKING PRESCRIPTION PAIN MEDICATION FOLLOW-UP WITH DR. EVANGELISTA ON Patient Instructions: How to Care for a Surgical Wound, Depression, Hemorrhage, [facility] Post Discharge Instructions - Follow up Plan Disposition: Home, Self-Group Home Medications: Home Medications Medication Instructions Recorded Confirmed Type Labetalol HCl 200 mg PO BID 11/17/18 01/30/19 History Famotidine [Acid Assistant Professor Of Philosophy] 20 mg PO DAILY 01/30/19 01/30/19 History Vit No.126/Iron/Folic 1 tab PO DAILY 01/30/19 01/30/19 History [Classic ] Ibuprofen [Motrin 400mg 400 mg PO Q4HP PRN #40 tab 02/01/19 Rx tablet] Oxycodone HCl/Acetaminophen 1 - 2 tab PO Q4-6H PRN #30 tablet 02/01/19 Rx [Percocet 5/325mg tablet] Prescriptions/Medication Reconciliation: New Oxycodone HCl/Acetaminophen [Percocet 5/325mg tablet] 1 - 2 tab PO Q4-6H PRN #30 tablet PRN Reason: Severe Pain Ibuprofen [Motrin 400mg tablet] 400 mg PO Q4HP PRN #40 tab PRN Reason: Moderate Pain Continued Labetalol HCl 200 mg PO BID Famotidine [Acid Assistant Professor Of Philosophy] 20 mg PO DAILY Vit No.126/Iron/Folic [Classic ] 1 tab PO DAILY - Problem Reconciliation Problems Reviewed?: Yes
== END 2019-02-01 15:15 | disposition home or self-care (01) | DRG 785 ==
LOC: OB 05:08
PROVIDERS: ADMIT Nurse Practitioner Obstetrics & Gynecology; ATTEND Nurse Practitioner Obstetrics & Gynecology
CPT/HCPCS: 36415; 59025; 80048; 80305; 81001; 82800; 85014; 85018; 85025; 85461; 86850; 94761; J1956; J2405; J2790; S0077

== ENCOUNTER → 2019-08-16 17:06 | Outpatient (CLI) | payer OTHER, SELFPAY ==
[2019-08-22 10:36] LABS: Neisseria gonorrhoeae, NAA Negative (Negative)
== END ==
PROVIDERS: Visit Provider Nurse Practitioner Obstetrics & Gynecology
DX: N93.9 Abnormal uterine and vaginal bleeding, unspecified (principal); Z72.51 High risk heterosexual behavior
CPT/HCPCS: 87491; 87591

== ENCOUNTER → 2019-08-18 12:44 | Outpatient (CLI) | payer OTHER, SELFPAY ==
--- NOTE | 2019-08-18 12:55 | US_ITS ---
PROCEDURE: US TRANSVAGINAL CLINICAL INDICATION: pelvic pain COMPARISON: [facility] US OB transvaginal from 07/11/2018 FINDINGS: UTERUS: 9cm x 5cmx 4cm with a combined endometrial thickness of 8.6mm LEFT OVARY: [id number] with a volume of 5.3ml. RIGHT OVARY: [id number] with a volume of 6.7ml. No pelvic mass abnormal fluid collection or other significant anomaly. IMPRESSION: Negative pelvic ultrasound Dictated by: Javed Conn MD 08/18/2019 16:30 Electronically signed by Javed Conn MD in [facility] 08/18/2019 16:30
== END ==
PROVIDERS: PCP Emergency Medicine; Visit Provider Nurse Practitioner Obstetrics & Gynecology
DX: R10.2 Pelvic and perineal pain (principal)
CPT/HCPCS: 76830

== ENCOUNTER → 2020-11-05 14:18 | Outpatient (CLI) | payer OTHER, SELFPAY ==
--- NOTE | 2020-11-05 15:02 | US_ITS ---
PROCEDURE: US TRANSVAGINAL CLINICAL INDICATION: extremely heavy periods. COMPARISON: US US TRANSVAGINAL from 08/18/2019 FINDINGS: UTERUS: 8cm x 5cmx 4cm with a combined endometrial thickness of 6mm LEFT OVARY: [id number] with a volume of 6.7ml. RIGHT OVARY: [id number] with a volume of 4.7ml. No cul-de-sac fluid. No adnexal mass. Unremarkable appearing uterus IMPRESSION: Negative pelvic ultrasound Dictated by: Javed Conn MD 11/06/2020 16:44 Javed Conn MD in [facility] 11/06/2020 16:44
== END ==
PROVIDERS: PCP Emergency Medicine; Visit Provider Nurse Practitioner Obstetrics & Gynecology
DX: N92.0 Excessive and frequent menstruation with regular cycle (principal)
CPT/HCPCS: 76830

== ENCOUNTER → 2020-12-16 12:30 | Outpatient (CLI) | payer OTHER, SELFPAY ==
[2020-12-16 13:11] LABS: Basophils # 0.1 K/mm3 (0-0.2); Basophils % 0.9 % (0.1-2.0); Eosinophils # 0.5 K/mm3 (0.0-0.4); Eosinophils % 4.7 % (0.1-12.0); Hemoglobin 13.9 g/dL (12.2-16.2); Lymphocytes # 3.8 K/mm3 (0.7-4.5); Lymphocytes % 32.9 % (10-50); Mean Corpuscular HGB Conc 32.4 g/dL (31.8-35.4); Mean Corpuscular Hemoglobin 28.1 pg (27.0-31.2); Mean Corpuscular Volume 86.7 fl (81-99); Mean Platelet Volume 7.9 fl (7.4-10.4); Monocytes # 0.5 K/mm3 (0.1-1.0); Monocytes % 3.9 % (1.7-9.3); Neutrophils # 6.6 K/mm3 (1.8-7.8); Neutrophils % 57.6 % (37.0-80.0); Platelet Count 528 K/mm3 (142-424); Red Blood Count 4.96 M/mm3 (4.20-5.40); Red Cell Distribution Width 14.5 % (11.5-17.5); White Blood Count 11.5 K/mm3 (4.8-10.8)
[2020-12-16 13:21] LABS: Urine Pregnancy, HCG Qual. Negative (Negative)
[2020-12-16 14:12] LABS: Free Thyroxine Index 3.2 ug/dL (5.93-13.13); T4 (Thyroxine) 9.6 ug/dl (5.53-11.0); Triiodothryronine (T3) Uptake 33 % (23.5-40.5)
[2020-12-16 14:26] LABS: Thyroid Stimulating Hormone 1.45 uIU/mL (0.465-4.68)
[2020-12-16 16:19] LABS: Anion Gap 12.2 mEq/L (5-15); Blood Urea Nitrogen 6 mg/dl (7-17); Calcium 9.4 mg/dl (8.4-10.2); Carbon Dioxide 22 mmol/L (22.0-30.0); Chloride 110 mmol/L (98-107); Estimated Glomerular Filt Rate 113 ml/min (>60); GFR (African American) 137 ML/MIN (>60); Glucose 104 mg/dl (74-100); Potassium 4.2 mmoL/L (3.5-5.1); Sodium 140 mmol/L (136-145)
== END ==
PROVIDERS: Visit Provider Nurse Practitioner Obstetrics & Gynecology
DX: Z11.52 Encounter for screening for COVID-19; N92.0 Excessive and frequent menstruation with regular cycle; Z01.812 Encounter for preprocedural laboratory examination
CPT/HCPCS: 36415; 80048; 81025; 84436; 84443; 84479; 85025; C9803; U0003; U0005

== ENCOUNTER 2020-12-18 05:49 | Day surgery (SDC) | payer OTHER, SELFPAY ==
[2020-12-16 14:46] VITALS: BMI 44.6
[2020-12-18] VITALS (10 sets, daily range): BP systolic 109–147; BP diastolic 69–92; PULSE 60–78; RESP 16–18; TEMP 36.2–36.7; O2SAT 92–100
--- NOTE | 2020-12-18 07:48 | HMH.ANESCL ---
[facility] Anesthesia Checklist - Patient Identification Patient Identification: Arm Band - Structural Data Admitted From: Home Planned Operative Procedure/s: Hysteroscopy/ D&C Consent for Planned Operative Procedure(s) Verified: Yes Verified Documents: Surgical Consent - NPO Status Verified Time NPO: 00:00 - Chart Verification Results Verified: H & H, HCG - Additional verifications Anesthesia Reactions: No Hx Blood Transfusions: No Blood Transfusion Reaction: No - Cardiovascular Assessment Heart Sounds: S1 & S2 Pulse Rhythm: Regular - Airway Assessment C-Spine Mobility Assessed: Yes TMJ Mobility Assessed: Yes Dentition: Poor Dentition - Neurological Assessment Level of Consciousness: Awake, Alert, Appropriate - Anesthesia Plan Anesthesia Type: General [facility] History I have reviewed the patient's past medical history: Yes Medical History: Reports:: Anxiety, Depression, Hyperlipidemia, Hypertension Denies:: Cancer, Diabetes Mellitus Type 1, Diabetes Mellitus Type 2, MRSA, Seizures *Have you ever received a pneumonia vaccine?: No *Have you received a flu vaccine this season?: No Other Medical History: Denies: Blood Transfusion Reaction Anesthesia experience/problems:: no issues Other Surgeries: Yes: , Dilation and Curettage, Tubal Ligation, Other Amputation: No Fractures: No - *Social History Last grade of school completed: Some college Smoking Status: Current every day smoker Tobacco Type: cigarettes # Packs/Day (cigarettes): 2 Alcohol Intake: former Substance Use Type: denies use *Occupational Status:: unemployed Housing: house Household Members: significant other, children *Travel in the last 8 weeks: None - Psychiatric History Pschychiatric History:: Reports:: Anxiety, Depression Family Hx:: Asthma, Coronary Artery Disease, Heart Attack, Hyperlipidemia, Hypertension ORDER PROCESSING CLERK history: Spontaneous , Additional ORDER PROCESSING CLERK History
--- NOTE | 2020-12-18 07:53 | HMH.OPNOTE ---
Date of procedure: 12/18/20 Pre-op Diagnosis:: Menorrhagia Post-op Diagnosis:: Menorrhagia Procedure performed:: Hysteroscopy, dilation and curettage, NovaSure ablation Surgeon:: Jason Smith MD Anesthesia: LMA Estimated blood loss (mL): 25 Clinical Note:: She is a 35-year-old lady who complains of extremely heavy periods. An ultrasound confirmed a normal appearance of her uterus. An endometrial biopsy was negative for hyperplasia or carcinoma. After having discussed the risks and benefits we elected perform a hysteroscopy, D&C and NovaSure ablation. Operative findings:: She had a normal anteverted uterus that sounded to 9 cm. The endometrium appeared lush. Tubal ostia were seen and appeared normal. Operative note:: She was taken to the operating room where LMA anesthesia was found be adequate. She was prepped and draped in the normal sterile fashion in the lithotomy position. A weighted speculum was placed in the vagina and the anterior lip of the cervix was grasped with a tenaculum. The cervix was then dilated to approximately 6 mm. I then inserted a hysteroscope into the uterine cavity and the findings were as previously dictated. I then performed a gentle curettage with a medium curette. I then sounded the uterus and determine the length of the uterus. Endometrial cavity was 6.0 cm long and 4.1 cm wide. This was placed into the NovaSure device. I then inserted the NovaSure device and determine the width of the endometrial cavity. I then ran the device through its program. I further inspected the endometrial cavity and was found to be completely charred. I then injected 30 cc of 0.5% ropivacaine at the 3:00, 5:00, 7:00, and 9:00 positions of the cervix. She tolerated procedure well and was taken to the recovery room in excellent condition. All sponge and instrument counts were correct. The estimated blood loss was less than 25 cc. Condition: stable Disposition: PACU Specimens:: Endometrial curettings Complications:: None
--- NOTE | 2020-12-18 08:03 | HMH.ANESI ---
[facility] Anesthesia Record Part I Intake, IV Amount: 650 Estimated blood loss (mL): 20 Urine output (mL): 0 Blood Pressure: 127/86 SaO2: 92 Pulse Rate: 63 Respiratory Rate: 16 Temperature: 97.2 F Patient is:: Drowsy
--- NOTE | 2020-12-18 08:24 | SUR.PHASEI ---
0820 Pt reports having lower abdomen pain and rates it as a 9. Pt stated that this was tolerable for her. Pt stated that putting a pillow between legs and on abdomen seems to help at home while laying on side. RN obtained 2 warm blankets and placed between legs and one on lower abdomen.
== END 2020-12-18 09:09 | disposition home or self-care (01) ==
LOC: OR 05:52
PROVIDERS: PCP Emergency Medicine; Visit Provider Nurse Practitioner Obstetrics & Gynecology
PROC: 0U5B8ZZ Destruction of Endometrium, Via Natural or Artificial Opening Endoscopic (ICD-10-PCS; CPT 58563; principal; 2020-12-18 07:30)
DX: N92.0 Excessive and frequent menstruation with regular cycle (principal); E78.5 Hyperlipidemia, unspecified; I10 Essential (primary) hypertension; F41.9 Anxiety disorder, unspecified; F32.9 Major depressive disorder, single episode, unspecified; Z72.0 Tobacco use; Z82.49 Family history of ischemic heart disease and other diseases of the circulatory system; Z83.438 Family history of other disorder of lipoprotein metabolism and other lipidemia; Z82.5 Family history of asthma and other chronic lower respiratory diseases; Z88.0 Allergy status to penicillin
CPT/HCPCS: 58563; 96374; J2405

== ENCOUNTER 2021-08-24 12:30 | Emergency (ER) | payer OTHER, SELFPAY ==
[2021-08-24 12:49] VITALS: BP 146/106; PULSE 98; RESP 18; TEMP 36.6; O2SAT 96; BMI 45.3
--- NOTE | 2021-08-24 12:55 | HMH.EDUTC ---
[facility] [place] Clinical Impression: Viral syndrome, Bronchitis Sinusitis Qualifiers: Sinusitis location: unspecified location Chronicity: acute Recurrence: non-recurrent Qualified Code(s): J01.90 - Acute sinusitis, unspecified Disposition: Home, Self-Care Condition on Discharge: Good Instructions: DI for Sinusitis Additional Instructions: Drink plenty of fluids. Take tylenol or ibuprofen for pain or fever. Take the medications as directed. Follow up with your regular doctor. GO TO THE ER FOR ANY WORSENING SYMPTOMS Quarantine until you know the results of your covid-19 test. Notify your school or workplace of your results and follow their instructions regarding return to work/school. Prescriptions: Benzonatate [Benzonatate 100mg cap] 100 mg PO TIDP PRN #30 cap PRN Reason: Cough Transmission Status: Received by [facility] methylPREDNISolone [Medrol] 4 mg PO DIRECTED 6 Days #21 packet Transmission Status: Received by [facility] Azithromycin [Z-Jose L 250mg Tab*] 250 mg PO UD DOSE PK #6 tab Transmission Status: Received by [facility] Referrals: Hero Blanco MD [Primary Care Provider] - Time of Disposition: 13:04 Medical Decision Making - Medical Records Medical records reviewed: No: I reviewed the patient's medical records. - Drew Inquiry Pt receiving controlled substance: No Vital Signs: 08/24/21 12:49 08/24/21 13:14 Temperature 97.9 F 97.9 F Temperature Source Oral Pulse Rate 98 H Pulse Rate [Left Radial] 98 H Respiratory Rate 18 18 Blood Pressure 146/106 H Blood Pressure [Right Arm] 146/106 H Blood Pressure Mean [Right Arm] 119 02 Sat by Pulse Oximetry 96 - Lab Data Lab results reviewed: Yes: I reviewed the patient's lab results. Orders (Tests/Meds): ORDERS Category Date Time Status Covid-19 Nasal PCR ([facility]) Routine Lab 08/24/21 13:06 Received [facility] [place] HPI - General Stated complaint: congestion Time Seen by Provider: 08/24/21 12:55 Description of Symptoms (Recalled from Triage Doc. by RN): patient comes in today with cough and congestion. symptoms have been going on for 3 days HEENT Symptoms (Recalled from RN notes): Yes Resp Symptoms (Recalled from RN notes): Yes Skin Symptoms (Recalled from RN notes): No MS Symptoms (Recalled from RN notes): No Functional Status (Recalled from RN notes): wl - History of Present Illness Provider Complaint: She states that for the past 3 days she has been having chest congstion, sinus congestion, scratchy throat. She dneise any fever or chills. She denies any known covid-19 exposure. She has been vaccinated against covid-19. - Related Data Previous Rx's Medication Instructions Recorded Oxycodone HCl/Acetaminophen 1 tab PO Q4-6H PRN #12 tab 12/18/20 [Percocet 5/325mg tablet] Azithromycin [Z-Jose L 250mg Tab*] 250 mg PO UD DOSE PK #6 tab 08/24/21 Benzonatate [Benzonatate 100mg 100 mg PO TIDP PRN #30 cap 08/24/21 cap] methylPREDNISolone [Medrol] 4 mg PO DIRECTED 6 Days #21 08/24/21 packet Allergies Allergy/AdvReac Type Severity Reaction Status Date / Time Penicillins [PENICILLINS] Allergy Intermediate Verified 08/24/21 12:51 - Worker's Comp Is this a Worker's Comp case?: No [facility] History - Hepatitis A Screen Attestation statement:: This patient has been screened for Hepatitis A risk factors. I have reviewed the patient's past medical history: Yes Medical History: Reports:: Anxiety, Depression, Hyperlipidemia, Hypertension Denies:: Cancer, Diabetes Mellitus Type 1, Diabetes Mellitus Type 2, MRSA, Seizures Other Medical History: Denies: Blood Transfusion Reaction Other Surgeries: Yes: , Dilation and Curettage, Tubal Ligation, Other Amputation: No Fractures: No Comment: D&E - Social History Smoking Status: Current every day smoker Tobacco Type: cigarettes # Packs/Day (cigarettes): 2 Alcohol Intake: former Substance Use Type: denies use
[2021-08-24 13:14] VITALS: BP 146/106; PULSE 98; RESP 18; TEMP 36.6
== END 2021-08-24 13:15 | disposition home or self-care (01) ==
PROVIDERS: Emergency Provider Nurse Practitioner Family; PCP Emergency Medicine
DX: J01.90 Acute sinusitis, unspecified (principal); B34.9 Viral infection, unspecified; J40 Bronchitis, not specified as acute or chronic
CPT/HCPCS: 99212; C9803; G0463; U0003; U0005

== ENCOUNTER → 2022-07-14 12:19 | Outpatient (CLI) | payer OTHER, SELFPAY ==
--- NOTE | 2022-07-14 12:22 | XR_ITS ---
FINAL REPORT CLINICAL HISTORY: Chronic neck and upper back pain FINDINGS: CERVICAL SPINE 5 views were obtained. There is no acute fracture. There is no malalignment. The disc spaces are preserved. There is no soft tissue abnormality. IMPRESSION: No acute bony abnormality. THORACIC SPINE 2 views were obtained. There is no acute fracture. There is mild levoscoliosis. There is no subluxation. The disc spaces are preserved. There is no soft tissue abnormality. IMPRESSION: No acute bony abnormality. Reviewed, Interpreted and Dictated by Meg Smith MD Transcribed by Hali Gputa Authenticated and [facility]
== END ==
PROVIDERS: PCP Emergency Medicine; Visit Provider Nurse Practitioner Family
DX: M25.512 Pain in left shoulder (principal); M79.602 Pain in left arm; M89.8X1 Other specified disorders of bone, shoulder; M54.2 Cervicalgia
CPT/HCPCS: 72084

== ENCOUNTER → 2022-07-30 14:18 | Outpatient (CLI) | payer OTHER, SELFPAY ==
--- NOTE | 2022-07-30 14:18 | MR_ITS ---
PROCEDURE INFORMATION: Exam: MR Cervical Spine Without and With Contrast Exam date and time: 07/30/2022 3:22 PM Age: 37 years old Clinical indication: Other: Left shoulder pain; Additional info: Left shoulder, arm pain with tingling pain. TECHNIQUE: Imaging protocol: Magnetic resonance imaging of the cervical spine without and with contrast. Contrast material: ISOVUE; Contrast volume: 28 ml; Contrast route: IV; COMPARISON: CR XR CERVICAL SPINE 5V 07/30/2022 2:54 PM FINDINGS: Bones/joints: There is preservation of vertebral alignment. There is preservation of vertebral body heights. No marrow replacing process. Spinal cord: Spinal cord is normal in signal characteristics. C2-C3: No significant disc bulge or herniation. No severe spinal canal stenosis. No significant neural foraminal narrowing. C3-C4: No significant disc bulge or herniation. No severe spinal canal stenosis. No significant neural foraminal narrowing. C4-C5: No significant disc bulge or herniation. No severe spinal canal stenosis. No significant neural foraminal narrowing. C5-C6: No significant disc bulge or herniation. No severe spinal canal stenosis. No significant neural foraminal narrowing. C6-C7: Left paracentral/subarticular discal extrusion contributing to mild left spinal canal stenoses. The left lateral recess is narrowed. There is severe left, no significant right neural foraminal narrowing. C7-T1: No significant disc bulge or herniation. No severe spinal canal stenosis. No significant neural foraminal narrowing. Soft tissues: Unremarkable. Vasculature: Expected flow voids in the vertebral arteries. IMPRESSION: Left paracentral/subarticular discal extrusion at C6-C7. The left lateral recess is narrowed. There is severe narrowing of the left neural foramen
--- NOTE | 2022-07-30 14:18 | MR_ITS ---
PROCEDURE INFORMATION: Exam: MR Thoracic Spine Without and With Contrast Exam date and time: 07/30/2022 3:22 PM Age: 37 years old Clinical indication: Other: Left arm pain; Additional info: Pain left arm, shoulder TECHNIQUE: Imaging protocol: Magnetic resonance imaging of the thoracic spine without and with contrast. Contrast material: PROHANCE; Contrast volume: 28 ml; Contrast route: IV; COMPARISON: CR XR MULTIPLE SPINE 6+V 07/30/2022 2:54 PM FINDINGS: Bones/joints: 5 mm hemangioma and T2. No fracture. Normal alignment. Spinal cord: Normal signal. No cord compression. Discs: Disc bulge at C6-C7 which is not well evaluated. No significant disc bulge throughout the thoracic spine. Soft tissues: Unremarkable. IMPRESSION: No acute findings within the thoracic spine. CT cervical spine dictated separately.
--- NOTE | 2022-07-30 14:45 | XR_ITS ---
FINAL REPORT CLINICAL HISTORY: back pain FINDINGS: LUMBAR SPINE 5 views of the lumbar spine were obtained. There is no evidence of fracture or dislocation. There is rightward curvature. Mild to moderate degenerative changes are seen. There is disc space narrowing at L5-S1. No paraspinous soft tissue abnormalities identified. IMPRESSION: Degenerative change without acute bony abnormality. THORACIC SPINE AP and lateral views were obtained. There is no acute fracture. There is mild leftward curvature. Mild degenerative changes are seen with osteophytes. There is no soft tissue abnormality. IMPRESSION: No acute bony abnormality. Reviewed, Interpreted and Dictated by Eugenio Kline III, MD Transcribed by Fern Aparicio Authenticated and [facility]
--- NOTE | 2022-07-30 14:49 | XR_ITS ---
FINAL REPORT CLINICAL HISTORY: LT SHOULDER PAIN FINDINGS: RIGHT SHOULDER: 3 views of the right shoulder werer obtained. There is no acute fracture or dislocation. The joint spaces are intact. There is no soft tissue abnormality. IMPRESSION: No acute fracture Reviewed, Interpreted and Dictated by Eugenio Kline III, MD Transcribed by Romi Jones Authenticated and [facility]
--- NOTE | 2022-07-30 14:49 | XR_ITS ---
FINAL REPORT CLINICAL HISTORY: CERVICALGIA FINDINGS: CERVICAL SPINE 5 views were obtained. There is no acute fracture. There is no malalignment. There are mild degenerative changes. Straightening is seen of the lower cervical spine. There is no soft tissue abnormality. IMPRESSION: No acute bony abnormality. Reviewed, Interpreted and Dictated by Eugenio Kline III, MD Transcribed by Fern Aparicio Authenticated and [facility]
== END ==
PROVIDERS: PCP Emergency Medicine; Visit Provider Nurse Practitioner Family
DX: M25.512 Pain in left shoulder (principal); M79.602 Pain in left arm; M89.8X1 Other specified disorders of bone, shoulder
CPT/HCPCS: 72050; 72084; 72156; 72157; 73030; 76376; A9576

== ENCOUNTER → 2022-07-31 10:33 | Outpatient (CLI) | payer OTHER, SELFPAY ==
--- NOTE | 2022-07-31 10:36 | MM_ITS ---
PROCEDURE INFORMATION: Exam: Bilateral Screening 3D Mammography Exam date and time: 07/31/2022 10:28 AM Age: 37 years old Clinical indication: Baseline. Her maternal grandmother had breast cancer. TECHNIQUE: Imaging protocol: Bilateral Screening tomosynthesis and 2D mammography including computer-aided detection (CAD) when performed. COMPARISON: No relevant prior studies available. FINDINGS: MAMMOGRAPHY: Breast composition: There are scattered areas of fibroglandular density. Mass: None. Architectural distortion: None. Calcifications: No suspicious calcifications. Asymmetric density: None. Skin thickening: None. Axillary adenopathy: None. IMPRESSION: No mammographic evidence of malignancy. Annual screening is recommended unless otherwise clinically indicated. ASSESSMENT: BI-RADS Category 1: Negative
== END ==
PROVIDERS: PCP Emergency Medicine; Visit Provider Nurse Practitioner Family
DX: Z12.31 Encounter for screening mammogram for malignant neoplasm of breast (principal)
CPT/HCPCS: 77063; 77067

== ENCOUNTER → 2022-08-26 14:42 | Outpatient (POV) | payer OTHER, SELFPAY ==
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
[2022-08-26 15:29] VITALS: BP 147/78; PULSE 88; RESP 18; O2SAT 98; BMI 44.2
== END | disposition home or self-care (01) ==
PROVIDERS: PCP Emergency Medicine; Visit Provider Nurse Practitioner Family
DX: M25.512 Pain in left shoulder (principal); M50.10 Cervical disc disorder with radiculopathy, unspecified cervical region; M54.50 Low back pain, unspecified; M48.02 Spinal stenosis, cervical region; M79.605 Pain in left leg; M54.16 Radiculopathy, lumbar region; M25.561 Pain in right knee
CPT/HCPCS: 99202; G0463

== ENCOUNTER → 2022-08-26 15:26 | Outpatient (CLI) | payer OTHER, SELFPAY ==
--- NOTE | 2022-08-26 15:31 | XR_ITS ---
FINAL REPORT TECHNIQUE: 3 views CLINICAL HISTORY: LBP x yrs, NKT. Imaging for pain management. FINDINGS: There is no fracture present. There is dextroscoliosis of the lumbar spine of 25 degrees. There is mild osteophyte formation at the L3-4, L4-5, and L5-S1 levels compatible with mild degenerative change. IMPRESSION: Dextroscoliosis of 25 degrees of the lumbar spine. Mild degenerative change. Reviewed, Interpreted and Dictated by Gilbert Izquierdo MD Transcribed by Romi Jones Authenticated and . [facility]
== END ==
PROVIDERS: PCP Emergency Medicine; Visit Provider Nurse Practitioner Family
DX: M54.50 Low back pain, unspecified (principal)
CPT/HCPCS: 72100

== ENCOUNTER → 2022-11-19 12:34 | Outpatient (CLI) | payer OTHER, SELFPAY ==
--- NOTE | 2022-11-19 12:34 | MR_ITS ---
FINAL REPORT CLINICAL HISTORY: bilateral back pain. bilateral leg pain, numbness and tingling. symptoms xyears COMPARISON: None FINDINGS: Multiplanar MR imaging of the lumbar spine was performed without contrast. On the sagittal T2-weighted images, disc degeneration is seen at the L5-S1 level with degenerative endplate changes. There is mild right curvature of the lumbar spine, with mild retrolisthesis of L5 on S1. There is no evidence of fracture. No bony mass is identified. The conus has an unremarkable appearance. No significant canal stenosis is identified. T12-L1: No significant canal stenosis or neural foraminal narrowing is seen. L1-2: No significant central canal stenosis or neuroforaminal narrowing. L2-3: No significant central canal stenosis or neuroforaminal narrowing. L3-4: An annular bulge is present, with no significant central canal stenosis or neural foraminal narrowing. L4-5: An annular bulge is present with a small right foraminal disc protrusion and mild bilateral neural foraminal narrowing. L5-S1: An annular bulge is present with facet osteoarthropathy and osteophytes. There is a right posterolateral disc protrusion which produces severe right and mild left neural foraminal narrowing. There is right L5 and S1 nerve root impingement. IMPRESSION: Lower lumbar degenerative change as described, most severe at the L5-S1 level. Reviewed, Interpreted and Dictated by Eugenio Kline III, MD Transcribed by Romi Jones Authenticated and . [facility]
== END ==
LOC: RAD 12:34
PROVIDERS: PCP Emergency Medicine; Visit Provider Emergency Medicine
DX: M54.9 Dorsalgia, unspecified (principal)
CPT/HCPCS: 72148; 76376

== ENCOUNTER 2023-04-23 09:41 | Outpatient (CLI) | payer OTHER, SELFPAY ==
--- NOTE | 2023-04-23 09:45 | US_ITS ---
PROCEDURE INFORMATION: Exam: US Left Breast, Complete Exam date and time: 04/23/2023 9:50 AM Age: 38 years old Clinical indication: PT states no nipple discharge just pain around areolar sometines TECHNIQUE: Imaging protocol: Complete ultrasound of all four quadrants of the left breast and the retroareolar regions, including ultrasound of the axilla when performed. COMPARISON: MG MM DIG SCREENING MAMM BI W/CAD 07/31/2022 10:28 AM FINDINGS: Breast: Sonographic images of the left breast including the retroareolar region, all 4 quadrants and the axilla do not demonstrate any solid masses. 0.4 cm cyst in the 10 o'clock axis 4 cm from the nipple. No architectural distortion or acoustical shadowing. No skin thickening or axillary adenopathy. IMPRESSION: A diagnostic left mammogram is recommended for full evaluation of the patient's complaint of left breast pain. ASSESSMENT: BI-RADS Category 0: Incomplete- Need Additional Imaging Evaluation and/or Prior Mammograms for Comparison
== END 2023-04-23 23:59 ==
LOC: RAD 09:41
PROVIDERS: PCP Emergency Medicine; Visit Provider Nurse Practitioner Family
DX: N64.9 Disorder of breast, unspecified (principal)
CPT/HCPCS: 76641

== ENCOUNTER 2023-06-11 12:52 | Outpatient (CLI) | payer OTHER, SELFPAY ==
--- NOTE | 2023-06-11 12:55 | MM_ITS ---
PROCEDURE INFORMATION: Exam: MG Left Diagnostic Breast Tomosynthesis Exam date and time: 06/11/2023 12:51 PM Age: 38 years old Clinical indication: Lt breast pain TECHNIQUE: Imaging protocol: Left Diagnostic tomosynthesis and 2D mammography including computer-aided detection (CAD) when performed. Unilateral or bilateral exam. COMPARISON: 1. MG MM DIG SCREENING MAMM BI W/CAD 07/31/2022 10:28 AM 2. US BREAST LT COMPLETE 04/23/2023 9:50 AM FINDINGS: MAMMOGRAPHY: Breast composition: There are scattered areas of fibroglandular density. Breast mammogram findings: There is no stellate mass, architectural distortion or suspicious microcalcifications to suggest malignancy. No skin thickening or axillary adenopathy. IMPRESSION: No mammographic evidence of malignancy. Annual bilateral mammographic screening is recommended in 6 months unless otherwise clinically indicated. ASSESSMENT: BI-RADS Category 1: Negative
== END 2023-06-11 23:59 ==
LOC: RAD 12:52
PROVIDERS: PCP Nurse Practitioner Family; Visit Provider Nurse Practitioner Family
DX: N64.89 Other specified disorders of breast (principal)
CPT/HCPCS: 77061; 77065; G0279

== ENCOUNTER 2023-07-02 13:00 | Outpatient (RCR) | payer OTHER, SELFPAY | END 2023-07-02 13:05 | disposition home or self-care (01) | LOC: OT 13:00 | PROVIDERS: Visit Provider Nurse Practitioner Family | DX: M25.512 Pain in left shoulder (principal) | CPT/HCPCS: 97010; 97014; 97035; 97140; 97165; 97530; G0283 ==

== ENCOUNTER 2023-10-26 14:52 | Outpatient (CLI) | payer OTHER, SELFPAY ==
--- NOTE | 2023-10-26 15:47 | MM_ITS ---
PROCEDURE INFORMATION: Exam: MG Bilateral Screening 3D Mammography Exam date and time: 10/26/2023 3:33 PM Age: 38 years old Clinical indication: Screening examination TECHNIQUE: Imaging protocol: Bilateral Screening tomosynthesis and 2D mammography including computer-aided detection (CAD) when performed. COMPARISON: 1. MG MM DIG MAMM DX UNILAT LT CAD 06/11/2023 12:51 PM 2. MG MM DIG SCREENING MAMM BI W/CAD 07/31/2022 10:28 AM FINDINGS: MAMMOGRAPHY: Breast composition: There are scattered areas of fibroglandular density. Mass: None. Architectural distortion: None. Calcifications: No suspicious calcifications. Asymmetric density: None. Skin thickening: None. Axillary adenopathy: None. IMPRESSION: No mammographic evidence of malignancy. Annual screening is recommended unless otherwise clinically indicated. ASSESSMENT: BI-RADS Category 1: Negative
[2023-10-26 15:54] VITALS: BMI 46.6
== END 2023-10-26 23:59 | disposition home or self-care (01) ==
LOC: DIETICIAN 14:53
PROVIDERS: PCP Nurse Practitioner Family; Visit Provider Nurse Practitioner Family
DX: Z68.42 Body mass index [BMI] 45.0-49.9, adult; E66.9 Obesity, unspecified; Z12.31 Encounter for screening mammogram for malignant neoplasm of breast
CPT/HCPCS: 77063; 77067; 97802

== ENCOUNTER 2024-01-03 08:40 | Emergency (ER) | payer OTHER, SELFPAY ==
[2024-01-03 09:20] VITALS: BP 135/77; PULSE 89; RESP 20; TEMP 37.2; O2SAT 100; BMI 47.1
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
[2024-01-03 09:30] LABS: UTC Strep Screen (Rapid) Positive (Negative)
[2024-01-03 09:40] VITALS: BP 135/77; PULSE 89; RESP 20; TEMP 37.2; O2SAT 100
== END 2024-01-03 09:42 | disposition home or self-care (01) ==
PROVIDERS: Emergency Provider Nurse Practitioner Family; PCP Internal Medicine
DX: J02.0 Streptococcal pharyngitis (principal); R50.9 Fever, unspecified; R07.0 Pain in throat; R11.0 Nausea; H92.03 Otalgia, bilateral
CPT/HCPCS: 87880; 99212; G0381

== ENCOUNTER 2024-01-18 14:30 | Outpatient (CLI) | payer OTHER, SELFPAY | END 2024-01-18 23:59 | disposition home or self-care (01) | LOC: LAB.DROPOF 01-19 09:15 | PROVIDERS: PCP Nurse Practitioner Obstetrics & Gynecology; Visit Provider Nurse Practitioner Obstetrics & Gynecology | DX: N76.0 Acute vaginitis (principal) | CPT/HCPCS: 87070; 87077; 87186; 87205 ==

== ENCOUNTER 2024-04-04 09:48 | Outpatient (RCR) | payer OTHER, SELFPAY | END 2024-04-04 23:59 | disposition home or self-care (01) | LOC: OT 09:48 | PROVIDERS: Visit Provider Nurse Practitioner Family | DX: M25.512 Pain in left shoulder (principal) | CPT/HCPCS: 97166; 97530 ==